=== PATIENT | male | born 1960 | race Caucasian/White ===

== ENCOUNTER 2016-09-10 15:04 | Emergency (ER) | payer OTHER, BC ==
[~2016-09-10] VITALS: Ht 185.4 cm; Wt 111.4 kg
[~2016-09-10 15:04] MED LIST: DEPAKOTE500 MG PO; KLONOPIN 1MG1 MG PO; PRINZIDE 12.5 M1 TA1 PO; SEROQUEL 1100 MG/TAB PO; ZOCOR 20MG20 MG PO
[2016-09-10 15:07] VITALS: BP 145/73; TEMP 98.4
[2016-09-10 16:36] VITALS: PULSE 90
== END 2016-09-10 16:35 | disposition home or self-care (01) ==
LOC: COL.ER 15:04
DX: S46.012A Strain of muscle(s) and tendon(s) of the rotator cuff of left shoulder, initial encounter (principal); S63.502A Unspecified sprain of left wrist, initial encounter; W11.XXXA Fall on and from ladder, initial encounter; Y92.89 Other specified places as the place of occurrence of the external cause; I10 Essential (primary) hypertension

== ENCOUNTER → 2016-09-13 | Outpatient (CLI) | payer BC, OTHER | LOC: BHSO 11:31 | DX: F41.1 Generalized anxiety disorder (principal) ==

== ENCOUNTER → 2017-05-09 | Outpatient (CLI) | payer BC, OTHER | LOC: BHSO 15:06 | DX: F41.1 Generalized anxiety disorder (principal) ==

== ENCOUNTER → 2017-11-14 | Outpatient (CLI) | payer BC | LOC: BHSO 10:04 | DX: F41.1 Generalized anxiety disorder (principal) | CPT/HCPCS: G0463 ==

== ENCOUNTER 2018-05-06 10:34 | Emergency (ER) | payer BC ==
[~2018-05-06] VITALS: Ht 185.4 cm; Wt 106.8 kg
[2018-05-06 10:38] VITALS: BP 147/81; PULSE 81; TEMP 98.3
[2018-05-06 11:15] LABS: ARTERIAL BLD GAS O2 SATURATION 97.8 % (92-100); ARTERIAL BLD GAS TCO2 CT 25.1; ARTERIAL BLOOD GAS BASE EXCESS 1.1 (-2-2); ARTERIAL BLOOD GAS HCO3 24.1 meq/L (22-26); ARTERIAL BLOOD GAS PCO2 33.5 mmHg (35-45); ARTERIAL BLOOD GAS PO2 108.1 mmHg (80-100); ARTERIAL BLOOD GAS pH 7.47 (7.35-7.45)
== END 2018-05-06 12:07 | disposition home or self-care (01) ==
LOC: COL.ER 10:34
PROVIDERS: Emergency Medicine; Physician Assistant
DX: T59.91XA Toxic effect of unspecified gases, fumes and vapors, accidental (unintentional), initial encounter (principal); I10 Essential (primary) hypertension; E78.5 Hyperlipidemia, unspecified

== ENCOUNTER → 2018-06-05 | Outpatient (CLI) | payer BC | LOC: BHSO 10:05 | DX: F31.81 Bipolar II disorder (principal) | CPT/HCPCS: G0463 ==

== ENCOUNTER → 2018-12-25 | Outpatient (CLI) | payer BC | LOC: BHSO 10:23 | DX: F31.81 Bipolar II disorder (principal) | CPT/HCPCS: G0463 ==

== ENCOUNTER → 2019-03-26 | Outpatient (CLI) | payer BC | LOC: BHSO 09:52 | DX: F31.81 Bipolar II disorder (principal) | CPT/HCPCS: G0463 ==

== ENCOUNTER → 2019-07-02 | Outpatient (CLI) | payer BC | LOC: BHSO 09:44 | DX: F31.81 Bipolar II disorder (principal) | CPT/HCPCS: G0463 ==

== ENCOUNTER → 2019-07-23 | Outpatient (CLI) | payer BC | LOC: COL.RAD 08:33 | DX: D69.6 Thrombocytopenia, unspecified (principal); R16.1 Splenomegaly, not elsewhere classified ==

== ENCOUNTER → 2020-01-14 | Outpatient (CLI) | payer BC ==
[~2020-01-14] MED LIST changes: +CYMBALTA 30MG30 MG PO; +LEVOXYL0.05 MG PO; +MOBIC 7.5MG7.5 MG PO; +NORVASC 5MG5 MG/TAB PO; +PRINIVIL20 MG PO; -PRINZIDE 12.5 M1 TA1 PO
== END ==
LOC: BHSO 09:27
DX: F31.81 Bipolar II disorder (principal)
CPT/HCPCS: G0463